=== PATIENT | male | born 1990 | race Caucasian/White ===

== ENCOUNTER 2018-03-02 17:22 | Emergency (ER) | payer OTHER ==
[2018-03-02 17:23] VITALS: BMI 23.3
[2018-03-02] MEDS ORDERED: Sodium Chloride 0.9% 1,000 ML IV ONE (18:42)
[2018-03-02] MEDS ORDERED: Sodium Chloride 0.9% 1,000 ML ONE (18:58)
[2018-03-02 19:04] VITALS: RESP 18
[2018-03-02 19:05] LABS: BASO # 0.1 K/uL (0.0-0.2); BASO % 0.6 % (0.0-2.0); EOS # 0.1 K/uL (0.0-0.7); EOS % 0.7 % (0.0-4.0); HEMOGLOBIN 15.3 g/dL (12.0-18.0); LYMPH % 10.7 % (20.0-40.0); MEAN CELL VOLUME 95.4 fL (80.0-94.0); MEAN CORPUSCULAR HEMOGLOBIN 34.1 pg (27.0-31.0); MEAN CORPUSCULAR HGB CONC 35.7 g/dL (33.0-37.0); MEAN PLATELET VOLUME 6.8 fL (7.2-11.7); MONO % 10.2 % (0.0-10.0); NEUT # 7.7 K/uL (1.8-7.0); NEUT % 77.8 % (50.0-75.0); RBC 4.5 Mil/uL (4.40-5.90); RED CELL DISTRIBUTION WIDTH 14.7 % (11.5-14.5); WHITE BLOOD COUNT 9.8 K/uL (4.8-10.8)
[2018-03-02 19:17] LABS: ALB/GLOB RATIO 1.3 (1.0-2.1); ALBUMIN 4.3 g/dL (3.5-5.0); ALT/SGPT 30 U/L (21-72); AST/SGOT 36 U/L (17-59); BLOOD UREA NITROGEN 10 mg/dL (9-20); CALCIUM 9.3 mg/dl (8.6-10.4); GFR AFRICAN-AMERICAN > 60; GFR NON-AFRICAN AMERICAN > 60; LIPASE 79 U/L (23-300)
[2018-03-02] MEDS ORDERED: Belladonna-Phenobarbital PO STA (19:36)
[2018-03-02] MEDS ORDERED: Aluminum Hydroxide/Magnesium Hydroxide Susp (30 mL) PO STA (19:36)
--- NOTE | 2018-03-02 19:37 | C.PDOC ---
History Of Present Illness 27yo male, otherwise healthy, presents to ED with complaints of fever, abdominal pain, nausea and vomiting since this morning. He denies any cough, chest pain, shortness of breath and offers no other medical complaints. Patient did not take any medications for his symptoms. PMD: None provided Time Seen by Provider: 03/02/18 18:12 Chief Complaint (Nursing): GI Problem History Per: Patient History/Exam Limitations: no limitations Onset/Duration Of Symptoms: Days Current Symptoms Are (Timing): Still Present Location Of Pain/Discomfort: Diffuse Associated Symptoms: Fever, Nausea, Vomiting Additional History Per: Patient Past Medical History Reviewed: Historical Data, Nursing Documentation, Vital Signs Vital Signs: Last Vital Signs Temp 98.5 F 03/02/18 21: Pulse 81 03/02/18: Resp 18 03/02/18 21: BP 125/79 03/02/18 21: Pulse Ox 99 03/03/18 21:22 - Medical History PMH: No Chronic Diseases Surgical History: No Surg Hx Family History: States: No Known Family Hx, Unknown Family Hx - Social History Hx Alcohol Use: Yes Hx Substance Use: No - Immunization History Hx Tetanus Toxoid Vaccination: No Hx Influenza Vaccination: No Hx Pneumococcal Vaccination: No Review Of Systems Except As Marked, All Systems Reviewed And Found Negative. Constitutional: Positive for: Fever, Chills. Negative for: Weakness, Malaise Eyes: Negative for: Pain, Vision Change, Conjunctivae Inflammation, Eyelid Inflammation, Redness ENT: Negative for: Ear Pain, Ear Discharge, Nose Pain, Nose Discharge, Nose Congestion, Mouth Pain, Mouth Swelling, Throat Pain Cardiovascular: Negative for: Chest Pain, Palpitations, Orthopnea, Paroxysmal Noc. Dyspnea Respiratory: Negative for: Cough, Shortness of Breath, Hemoptysis, SOB with Excertion, Pleuritic Pain, Sputum Gastrointestinal: Positive for: Nausea, Vomiting, Abdominal Pain. Negative for : Constipation, Melena, Hematochezia, Hematemesis Genitourinary: Negative for: Dysuria, Frequency, Incontinence Musculoskeletal: Negative for: Neck Pain, Shoulder Pain, Arm Pain Skin: Negative for: Rash Neurological: Negative for: Weakness, Numbness, Incoordination, Confusion Psych: Negative for: Anxiety, Depression Physical Exam - Physical Exam Appears: Non-toxic, No Acute Distress Skin: Normal Color, Warm, Dry Head: Atraumatic, Normacephalic Eye(s): bilateral: Normal Inspection, PERRL, EOMI Ear(s): Bilateral: Normal Nose: Normal Oral Mucosa: Moist Tongue: Normal Appearing Lips: Normal Appearing Teeth: Normal Dentition Gingiva: Normal Appearing Throat: Normal Neck: Normal ROM, Supple Chest: Symmetrical Cardiovascular: Rhythm Regular Respiratory: Normal Breath Sounds Gastrointestinal/Abdominal: Normal Exam, Soft, No Tenderness Extremity: Normal ROM, No Deformity Extremity: Bilateral: Atraumatic, No Pedal Edema, Normal Color And Temperature, Normal ROM Neurological/Psych: Oriented x3 ED Course And Treatment - Laboratory Results Result Diagrams: 03/02/18 19:02 03/02/18 19:02 O2 Sat by Pulse Oximetry: 99 (RA) Pulse Ox Interpretation: Normal Medical Decision Making Medical Decision Making: Impression: Plan: -- IV Fluids -- Labs -- CXR -- Pepcid 20mg PO -- 1tab PO -- Maalox 30ml PO -- Tylenol 975mg PO Time: 2052 Labs reviewed and unremarkable. Upon reassessment, patient reports marked improvement in pain. Disposition Counseled Patient/Family Regarding: Diagnosis - Disposition Referrals: [facility] [place] [facility] [Outside] [facility] [Outside] Disposition: HOME/ ROUTINE Disposition Time: 21:01 Condition: GOOD Additional Instructions: return if symptoms worsen or return Instructions: Acute Abdomen (Belly Pain), Acute Abdomen (Belly Pain), Adult (DC ), Nausea and Vomiting, Adult (DC) Forms: [facility] (Icelandic) - Clinical Impression Clinical Impression: Abdominal pain - Scribe Statement The provider has reviewed the documentation as recorded by the Scribe (Tiny Banda) Provider Attestation: All medical record entries made by the Scribe were at my direction and personally dictated by me. I have reviewed the chart and agree that the record accurately reflects my personal performance of the history, physical exam, medical decision making, and the department course for this patient. I have also personally directed, reviewed, and agree with the discharge instructions and disposition.
[2018-03-02] MEDS ORDERED: Belladonna-Phenobarbital ONE (20:03)
[2018-03-02] MEDS ORDERED: Aluminum Hydroxide/Magnesium Hydroxide Susp (30 mL) ONE (20:03)
[2018-03-02 21:03] LABS: URINE BACTERIA MOD (<OCC); URINE BILIRUBIN NEGATIVE (NEGATIVE); URINE BLOOD 1+ (NEGATIVE); URINE CLARITY Hazy (Clear); URINE GLUCOSE (UA) NORMAL (Normal); URINE LEUKOCYTE ESTERASE 1+ Leu/uL (Negative); URINE PROTEIN 1+ mg/dL (NEGATIVE); URINE UROBILINOGEN NORMAL mg/dL (0.2-1.0)
[2018-03-02 21:19] VITALS: BP 125/79; PULSE 81; TEMP 98.5; O2SAT 99
== END 2018-03-02 21:19 | disposition home or self-care (01) ==
LOC: C.ER 17:22
DX: R10.9 Unspecified abdominal pain (principal)
CPT/HCPCS: 71046; 80053; 81001; 83690; 85025; 96360; 99285; J7040

== ENCOUNTER 2018-03-04 05:20 | Emergency (ER) | payer OTHER ==
[2018-03-04 05:20] VITALS: BMI 23.3
[2018-03-04] MEDS ORDERED: Sodium Chloride 0.9% 1,000 ML IV ONE (05:48)
[2018-03-04] MEDS ORDERED: Piperacillin/Tazobact 3.375 gm 100 ML IVPB STA (05:49)
--- NOTE | 2018-03-04 05:50 | C.PDOC ---
History Of Present Illness 27 year old male presents to the emergency department with complaints of right- sided abdominal pain with nausea. Patient reports he was seen in the ED yesterday for the same complaints, and had blood work and a CXR done which resulted negative. Patient denies vomiting. Time Seen by Provider: 03/04/18 05:48 Chief Complaint (Nursing): Abdominal Pain History Per: Patient History/Exam Limitations: no limitations Onset/Duration Of Symptoms: Days (1) Current Symptoms Are (Timing): Still Present Context: Other Severity: Moderate Pain Scale Rating Of: 4 Location Of Pain/Discomfort: RLQ Radiation Of Pain To:: None Quality Of Discomfort: "Pain" Associated Symptoms: Nausea. denies: Vomiting, Urinary Symptoms Exacerbating Factors: None Alleviating Factors: None Last Bowel Movement: Yesterday Recent travel outside of the [place]: No Additional History Per: Patient Past Medical History Reviewed: Historical Data, Nursing Documentation, Vital Signs Vital Signs: Last Vital Signs Temp 101.9 F H 03/04/18 05:42 Pulse 115 H 03/04/18 05:31 Resp 18 03/04/18 05:31 BP 134/95 H 03/04/18 05:31 Pulse Ox 99 03/04/18 06:26 - Medical History PMH: No Chronic Diseases Surgical History: No Surg Hx Family History: States: No Known Family Hx - Social History Hx Alcohol Use: Yes Hx Substance Use: No - Immunization History Hx Tetanus Toxoid Vaccination: No Hx Influenza Vaccination: No Hx Pneumococcal Vaccination: No Review Of Systems Constitutional: Positive for: Fever. Negative for: Chills Cardiovascular: Negative for: Chest Pain Respiratory: Negative for: Shortness of Breath Gastrointestinal: Positive for: Nausea, Abdominal Pain. Negative for: Vomiting Genitourinary: Negative for: Incontinence Musculoskeletal: Negative for: Back Pain Skin: Negative for: Rash Neurological: Negative for: Weakness Psych: Negative for: Anxiety Physical Exam - Physical Exam Appears: Non-toxic, No Acute Distress Skin: Warm, Dry Head: Normacephalic Eye(s): bilateral: Normal Inspection Oral Mucosa: Moist Neck: Supple Cardiovascular: Rhythm Regular Respiratory: No Rales, No Rhonchi, No Wheezing Gastrointestinal/Abdominal: Bowel Sounds (tympanic to percussion), Soft, Tenderness (RLQ), No Distention, No Guarding, No Rebound Back: Normal Inspection Extremity: Normal ROM Extremity: Bilateral: Atraumatic, Normal Color And Temperature Pulses: Left Dorsalis Pedis: Normal, Right Dorsalis Pedis: Normal Neurological/Psych: Oriented x3, Normal Speech, Normal Cognition Gait: Steady ED Course And Treatment - Laboratory Results Result Diagrams: 03/04/18 06:26 18 06:26 O2 Sat by Pulse Oximetry: 99 (RA) Pulse Ox Interpretation: Normal Progress Note: Plan: Venous Blood Gas. CT Abdomen and Pelvis. CMP. Lipase. CBC. PTT. Prothrombin Time. Zosyn 100ml IVBP. NaCl IV Fluids. Toradol 30mg IVP. Blood Culture. Urinalysis Disposition Counseled Patient/Family Regarding: Studies Performed, Diagnosis - Disposition Disposition Time: 06:47 Condition: FAIR Forms: [facility] (Urdu) - Clinical Impression Clinical Impression: Abdominal pain, Fever - Scribe Statement The provider has reviewed the documentation as recorded by the Scribe (Julian Smiley) Provider Attestation: All medical record entries made by the Scribe were at my direction and personally dictated by me. I have reviewed the chart and agree that the record accurately reflects my personal performance of the history, physical exam, medical decision making, and the department course for this patient. I have also personally directed, reviewed, and agree with the discharge instructions and disposition. Physician Patient Turnover Patient Signed Over To: Angelica Whitman Handoff Comments: pending CT and dispostion
[2018-03-04] MEDS ORDERED: Piperacillin/Tazobact 3.375 gm 100 ML IVPB ONE (06:28)
[2018-03-04 06:30] LABS: BASO % 0.2 % (0.0-2.0); EOS % 0.1 % (0.0-4.0); HEMOGLOBIN 14.8 g/dL (12.0-18.0); LYMPH # 0.4 K/uL (1.0-4.3); LYMPH % 5.4 % (20.0-40.0); MEAN CELL VOLUME 95.5 fL (80.0-94.0); MEAN CORPUSCULAR HEMOGLOBIN 33.8 pg (27.0-31.0); MEAN CORPUSCULAR HGB CONC 35.4 g/dL (33.0-37.0); MEAN PLATELET VOLUME 8.1 fL (7.2-11.7); MONO # 0.5 K/uL (0.0-0.8); MONO % 7.1 % (0.0-10.0); NEUT # 6.5 K/uL (1.8-7.0); NEUT % 87.2 % (50.0-75.0); NRBC % 0.1 % (0.0-2.0); PLATELET COUNT 136 K/uL (130-400); RBC 4.39 Mil/uL (4.40-5.90); RED CELL DISTRIBUTION WIDTH 14.5 % (11.5-14.5); WHITE BLOOD COUNT 7.4 K/uL (4.8-10.8)
[2018-03-04 06:38] LABS: INR 1.1; PROTHROMBIN TIME 11.8 SECONDS (9.7-12.2); SQUAMOUS EPITHIAL 3 /hpf (0-5); URINE BACTERIA OCC (<OCC); URINE BILIRUBIN NEGATIVE (NEGATIVE); URINE BLOOD 1+ (NEGATIVE); URINE CLARITY Hazy (Clear); URINE COLOR Amber (YELLOW); URINE GLUCOSE (UA) NORMAL (Normal); URINE LEUKOCYTE ESTERASE 3+ Leu/uL (Negative); URINE PROTEIN 2+ mg/dL (NEGATIVE)
[2018-03-04 06:42] LABS: BLOOD UREA NITROGEN 8 mg/dL (9-20); GFR AFRICAN-AMERICAN > 60; GFR NON-AFRICAN AMERICAN > 60
[2018-03-04 06:43] LABS: ALB/GLOB RATIO 1.2 (1.0-2.1); ALBUMIN 4.3 g/dL (3.5-5.0); ALT/SGPT 20 U/L (21-72); AST/SGOT 33 U/L (17-59); CALCIUM 9.2 mg/dl (8.6-10.4); LIPASE 93 U/L (23-300)
[2018-03-04 06:45] LABS: VENOUS BLOOD GAS BASE EXCESS 2.4 mmol/L (0.0-2.0); VENOUS BLOOD GAS PCO2 38 mmHg (40-60); VENOUS BLOOD GAS PO2 25 mm/Hg (30-55); VENOUS BLOOD PH 7.45 (7.32-7.43)
[2018-03-04] MEDS ORDERED: Iodixanol 320 MG/ML 100 ML BOTTLE IV ONE (07:11)
[2018-03-04 08:13] LABS: LYMPHOCYTE 6 % (20-40); MONOCYTE 10 % (0-10); NEUTROPHIL 84 % (50-75); PLATELET ESTIMATE NORMAL (NORMAL); TOTAL CELLS COUNTED 100
--- NOTE | 2018-03-04 09:08 | CT ---
PROCEDURE: CT Abdomen and Pelvis with contrast HISTORY: Abdominal pain COMPARISON: None. TECHNIQUE: CT scan of the abdomen and pelvis was performed after administration of intravenous contrast. Oral contrast was not administered. Coronal and sagittal reformatted images were obtained. Contrast dose: 100 mL Visipaque Radiation dose: Total exam DLP = 445.32 mGy-cm. This CT exam was performed using one or more of the following dose reduction techniques: Automated exposure control, adjustment of the mA and/or kV according to patient size, and/or use of iterative reconstruction technique. FINDINGS: LOWER THORAX: There is a 6 mm noncalcified nodule in the right lower lobe. The lung bases are clear. LIVER: Normal in size with homogeneous enhancement. No gross lesion or ductal dilatation. GALLBLADDER AND BILE DUCTS: No calcified gallstones. PANCREAS: Normal in size with homogeneous enhancement. No gross lesion or ductal dilatation. SPLEEN: There is borderline splenomegaly. ADRENALS: No discrete nodule. KIDNEYS AND URETERS: Normal in size with homogeneous enhancement. No hydronephrosis. No solid mass. VASCULATURE: No aortic aneurysm. BOWEL: The small bowel loops are normal in caliber. The colon is unremarkable. No bowel dilatation or obstruction. APPENDIX: Normal appendix. PERITONEUM: No free fluid. No free air. LYMPH NODES: No enlarged lymph nodes. BLADDER: There is moderate circumferential mural thickening of the bladder wall. REPRODUCTIVE: Unremarkable. BONES: There are bilateral pars interarticularis defects at L5 with grade 1 anterior listhesis of L5 on S1. No acute fracture. OTHER FINDINGS: None. IMPRESSION: 1. Moderate circumferential mural thickening of the urinary bladder wall concerning for cystitis. Please correlate with urine analysis. 2. No acute abdominal or pelvic abnormality. 3. 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 6. 6 mm noncalcified nodule in the right lower lobe. A follow-up CT scan of the thorax in 6-12 months interval is recommended to assess stability of this nodule.
[2018-03-04 09:20] VITALS: BP 138/83; PULSE 70; RESP 18; TEMP 99; O2SAT 98
== END 2018-03-04 10:00 | disposition home or self-care (01) ==
LOC: C.ER 05:20
DX: R50.9 Fever, unspecified (principal); R10.31 Right lower quadrant pain
CPT/HCPCS: 74177; 80053; 81001; 82803; 83690; 85025; 85610; 85730; 87040; 87086; 96374; 96375; 99285; J1885; J2405; J2543; J7040; Q9967

== ENCOUNTER 2018-03-04 21:39 | Inpatient (IN) | payer OTHER ==
[2018-03-04 21:39] VITALS: BMI 23.3
[2018-03-04] MEDS ORDERED: Sodium Chloride 0.9% 1,000 ML IV ONE (22:24)
--- NOTE | 2018-03-04 22:48 | C.PDOC ---
History Of Present Illness 27 year old male presents to the ER after he was called back after he had blood cultures that were positive for gram negative rods. Patient was initially seen on 03/02/18 for fever, abdominal pain, nausea, and vomiting. Patient had lab work done that showed a normal white count and urine of 88 WBCs with nitrites. Patient continued with abdominal and fever, he returned earlier today and was found with 987 WBCs in his urine, he was given a dose of zosyn and discharged on cipro and doxycycline. He was called back this afternoon for Blood cultures that were positive for Gram- rods. Patient reports he still has abdominal discomfort and has had fever today but denies back pain. Time Seen by Provider: 03/04/18 22:17 Chief Complaint (Nursing): Fever History Per: Patient History/Exam Limitations: no limitations Onset/Duration Of Symptoms: Hrs Current Symptoms Are (Timing): Still Present Location Of Pain: Other (Abdominal pain) Sick Contacts (Context): None Associated Symptoms: Fever, Other (Abdominal discomfort) Recent travel outside of the [place]: No Past Medical History Reviewed: Historical Data, Nursing Documentation, Vital Signs Vital Signs: Last Vital Signs Temp 99.8 F H 03/04/18 21:57 Pulse 108 H 03/04/18 21:57 Resp 20 03/04/18 21:57 BP 116/90 03/04/18 21:57 Pulse Ox 100 03/04/18 23:39 Family History: States: Unknown Family Hx - Social History Hx Alcohol Use: Yes (EVERY WEEKEND) Hx Substance Use: No - Immunization History Hx Tetanus Toxoid Vaccination: No Hx Influenza Vaccination: No Hx Pneumococcal Vaccination: No Review Of Systems Constitutional: Positive for: Fever Cardiovascular: Negative for: Chest Pain, Palpitations Respiratory: Negative for: Cough, Shortness of Breath Gastrointestinal: Positive for: Abdominal Pain. Negative for: Vomiting Physical Exam - Physical Exam Appears: Non-toxic Skin: Normal Color, Warm, Dry Head: Atraumatic, Normacephalic Eye(s): bilateral: Normal Inspection Oral Mucosa: Moist Neck: Normal, Supple Chest: Symmetrical, No Tenderness Cardiovascular: Rhythm Regular Respiratory: Normal Breath Sounds, No Rales, No Rhonchi, No Wheezing Gastrointestinal/Abdominal: Soft, Tenderness (Mild suprapubic), No Guarding, No Rebound Back: No CVA Tenderness Neurological/Psych: Oriented x3, Normal Speech ED Course And Treatment - Laboratory Results Result Diagrams: 03/04/18 22:38 03/04/18 22:38 Lab Interpretation: Abnormal (WBC 6.7 with persistent left shift, UA WBC 428 with 3+ leukocyte esterase) O2 Sat by Pulse Oximetry: 100 (Room air) Pulse Ox Interpretation: Normal Progress Note: Blood work and urinalysis ordered. - Physician Consult Information Physician Contacted: Yayo Yusuf Outcome Of Conversation: Patient to be admitted for bacturia with pyelonephritis Disposition - Disposition Disposition: HOSPITALIZED Disposition Time: 00:00 Condition: STABLE - POA Present On Arrival: None - Clinical Impression Clinical Impression: Pyelonephritis, acute - Scribe Statement The provider has reviewed the documentation as recorded by the Scribfelisha Almeida All medical record entries made by the Brandyibfelisha were at my direction and personally dictated by me. I have reviewed the chart and agree that the record accurately reflects my personal performance of the history, physical exam, medical decision making, and the department course for this patient. I have also personally directed, reviewed, and agree with the discharge instructions and disposition.
[2018-03-04 22:57] LABS: URINE BACTERIA OCC (<OCC); URINE BILIRUBIN NEGATIVE (NEGATIVE); URINE BLOOD 2+ (NEGATIVE); URINE CLARITY Hazy (Clear); URINE COLOR Yellow (YELLOW); URINE GLUCOSE (UA) NORMAL (Normal); URINE LEUKOCYTE ESTERASE 3+ Leu/uL (Negative); URINE PROTEIN 1+ mg/dL (NEGATIVE)
[2018-03-04 23:19] LABS: ALB/GLOB RATIO 1.1 (1.0-2.1); ALBUMIN 4.1 g/dL (3.5-5.0); ALT/SGPT 21 U/L (21-72); AST/SGOT 37 U/L (17-59); BASO % 0.3 % (0.0-2.0); BLOOD UREA NITROGEN 5 mg/dL (9-20); CALCIUM 9.1 mg/dl (8.6-10.4); GFR AFRICAN-AMERICAN > 60; GFR NON-AFRICAN AMERICAN > 60; HEMOGLOBIN 14.9 g/dL (12.0-18.0); LIPASE 149 U/L (23-300); LYMPH # 0.5 K/uL (1.0-4.3); LYMPH % 7.5 % (20.0-40.0); MEAN CELL VOLUME 94.6 fL (80.0-94.0); MEAN CORPUSCULAR HEMOGLOBIN 34.1 pg (27.0-31.0); MONO # 0.7 K/uL (0.0-0.8); MONO % 10.1 % (0.0-10.0); NEUT # 5.5 K/uL (1.8-7.0); NEUT % 82.1 % (50.0-75.0); PLATELET COUNT 145 K/uL (130-400); RBC 4.38 Mil/uL (4.40-5.90); RED CELL DISTRIBUTION WIDTH 14.4 % (11.5-14.5); WHITE BLOOD COUNT 6.7 K/uL (4.8-10.8)
[2018-03-04] MEDS: Dextrose 5%/0.45% NS 1,000 ML IV SCH (23:20)
[2018-03-04 23:23] LABS: BANDS 1 % (0-2); LYMPHOCYTE 10 % (20-40); MONOCYTE 8 % (0-10); NEUTROPHIL 81 % (50-75); PLATELET ESTIMATE NORMAL (NORMAL); TOTAL CELLS COUNTED 100
[2018-03-05 01:26] VITALS: RESP 20
[2018-03-05] MEDS: Dextrose 5%/0.45% NS 1,000 ML IV SCH ×2 (01:28→08:27)
[2018-03-05] MEDS: Enoxaparin 40 mg Syringe SC SCH (10:26)
--- NOTE | 2018-03-05 10:53 | CP.PCM.PN ---
Subjective - Date & Time of Evaluation Date of Evaluation: 03/05/18 Time of Evaluation: 08:00 - Subjective Subjective: PGY2 medicine progress note for Dr. Yusuf: Patient was seen and examined at bedside th is morning. He reported abdominal pain radiating to the back b/l and burning with urination for the past 3 days. He states his urine is dark yellow and also reports some clear/yellow discharge. He had been seen in the ED twice then was called to return due to positive blood cultures. Patient states he has also had fever and chills over the last couple of days. He reports some mild nausea and vomiting clear fluid. He has no other complaints at this time. He is having regular bowel movement. PMHx - none Meds - denies Allergies - NKDA Surg - denies Fam hx - father had "jaundice" Social - from [place] works in [employer], single, denied tobacco or drug use. Admits to heaving alcohol drinking but only on the weekends PMD - none, will need one Objective - Vital Signs/Intake and Output Vital Signs (last 24 hours): Temp Pulse Resp BP Pulse Ox 98.3 F 64 20 135/77 100 03/05/18 07:15 03/05/18 07:15 03/05/18 07:15 03/05/18 07:15 03/05/18 07:15 Intake and Output: 03/05/18 03/05/18 06:59 18:59 Intake Total 300 Balance 300 - Medications Medications: Current Medications Acetaminophen (Tylenol 325mg Tab) 650 mg PO Q6 PRN PRN Reason: Temperature Enoxaparin Sodium (Lovenox) 40 mg SC DAILY [facility] Last Admin: 03/05/18 10:26 Dose: 40 mg Ceftriaxone Sodium 1 gm/ (Sodium Chloride) 100 mls @ 100 mls/hr IVPB DAILY [facility] PRN Reason: Protocol Last Admin: 03/05/18 10:26 Dose: 100 mls/hr Dextrose/Sodium Chloride (Dextrose 5%/0.45% Ns 1000 Ml) 1,000 mls @ 100 mls/hr IV .Q10H KENN Last Admin: 03/05/18 08:27 Dose: 100 mls/hr - Labs Labs: 03/04/18 22:38 03/04/18 22:38 - Constitutional Appears: Non-toxic, No Acute Distress - Head Exam Head Exam: ATRAUMATIC, NORMAL INSPECTION - Eye Exam Eye Exam: EOMI - ENT Exam ENT Exam: Mucous Membranes Moist - Respiratory Exam Respiratory Exam: Clear to Ausculation Bilateral, NORMAL BREATHING PATTERN. absent: Respiratory Distress - Cardiovascular Exam Cardiovascular Exam: REGULAR RHYTHM, +S1, +S2 - GI/Abdominal Exam GI & Abdominal Exam: Soft, Hypoactive Bowel Sounds. absent: Distended, Firm, Guarding, Tenderness - Extremities Exam Extremities Exam: Normal Inspection. absent: Calf Tenderness, Pedal Edema - Back Exam Back Exam: CVA tenderness (L), CVA tenderness (R), NORMAL INSPECTION. absent: paraspinal tenderness, rash noted - Neurological Exam Neurological Exam: Alert, Awake, CN II-XII Intact, Normal Gait, Oriented x3 Neuro motor strength exam: Left Upper Extremity: 5, Right Upper Extremity: 5, Left Lower Extremity: 5, Right Lower Extremity: 5 - Psychiatric Exam Psychiatric exam: Normal Affect, Normal Mood - Skin Skin Exam: Dry, Intact, Normal Color Assessment and Plan - Assessment and Plan (Free Text) Assessment: Urinary Tract infection with possible Pyelonephritis UA 2+ blood, 3+ LE, 5 RBC, 428 WBC f/u culture and sensitivity Ceftriaxone 1gram IVPA daily CT showed thickening of the wall of the bladder concerning for cysitits, kidneys appeared normal, incidental findings as indicated below f/u Am labs Tylenol prn fever/pain Bacteremia Likely secondary to UTI/pyelo Blood cultures done in the ER on 5.23 + Gram negative rods in one bottle - f/u sensitivity Dr. Grant, ID on board help appreciated Was febrile in Ed yesterday Tmax 100.0 Chest X ray negative 6mm RLL lung nodules Incidental finding on CT Patient will need follow up CT in 3-6 months, outpatient Spondylolysis L5/S1 Incidental finding on CT Outpatient management Tylenol prn pain Alcohol use Counselled will f/u Mg level Prophylactic Measures Lovenox 40mg SC daily GI not indicated NS at 100 cc/hour Liquid diet - advance as tolerated All management per Dr. Yusuf.
[2018-03-05] MEDS: Sodium Chloride 0.9% 1,000 ML IV SCH ×3 (11:15→22:02)
[2018-03-05 12:01] LABS: BASO % 0.2 % (0.0-2.0); EOS % 0.1 % (0.0-4.0); HEMOGLOBIN 14.8 g/dL (12.0-18.0); LYMPH # 0.4 K/uL (1.0-4.3); LYMPH % 8.5 % (20.0-40.0); MEAN CELL VOLUME 94.4 fL (80.0-94.0); MEAN CORPUSCULAR HEMOGLOBIN 33.6 pg (27.0-31.0); MEAN CORPUSCULAR HGB CONC 35.6 g/dL (33.0-37.0); MEAN PLATELET VOLUME 8.2 fL (7.2-11.7); MONO # 0.1 K/uL (0.0-0.8); MONO % 2.8 % (0.0-10.0); NEUT # 4.3 K/uL (1.8-7.0); NEUT % 88.4 % (50.0-75.0); NRBC % 0.2 % (0.0-2.0); RBC 4.41 Mil/uL (4.40-5.90); RED CELL DISTRIBUTION WIDTH 14.5 % (11.5-14.5); WHITE BLOOD COUNT 4.8 K/uL (4.8-10.8)
[2018-03-05 12:05] LABS: PLATELET COUNT 123 K/uL (130-400)
[2018-03-05 12:07] LABS: ALB/GLOB RATIO 1.1 (1.0-2.1); ALBUMIN 3.9 g/dL (3.5-5.0); ALT/SGPT 31 U/L (21-72); AST/SGOT 43 U/L (17-59); BLOOD UREA NITROGEN 4 mg/dL (9-20); CALCIUM 9.1 mg/dl (8.6-10.4); GFR AFRICAN-AMERICAN > 60; GFR NON-AFRICAN AMERICAN > 60
[2018-03-05 12:26] LABS: BANDS 1 % (0-2); LYMPHOCYTE 7 % (20-40); MONOCYTE 5 % (0-10); NEUTROPHIL 87 % (50-75); TOTAL CELLS COUNTED 100
[2018-03-05 12:27] LABS: PLATELET ESTIMATE NORMAL (NORMAL)
[2018-03-05] MEDS: Saccharomyces Boulardi 250 mg Cap PO SCH ×2 (12:30→17:08)
[2018-03-05] MEDS: Magnesium Sulfate 1 gm in D5W 1 GM/100 ML BAG IVPB SCH ×2 (14:51→15:33)
--- NOTE | 2018-03-05 19:22 | CP.PCM.CON ---
History of Present Illness - History of Present Illness History of Present Illness: 27 year old male presents to the ER after he was called back after he had blood cultures that were positive for gram negative rods. Patient was initially seen on 03/02/18 for fever, abdominal pain, nausea, and vomiting. Patient had lab work done that showed a normal white count and urine of 88 WBCs with nitrites. Patient continued with abdominal and fever, he returned earlier today and was found with 987 WBCs in his urine, he was given a dose of zosyn and discharged on cipro and doxycycline. He was called back this afternoon for Blood cultures that were positive for Gram- rods. Patient reports he still has abdominal discomfort and has had fever today but denies back pain. PMHx - none Meds - denies Allergies - NKDA Surg - denies Fam hx - father had "jaundice" Social - from [place] works in [employer], single, denied tobacco or drug use. Admits to heaving alcohol drinking but only on the weekends PMD - none, will need one Review of Systems - Review of Systems All systems: reviewed and no additional remarkable complaints except Past Patient History - Infectious Disease Hx of Infectious Diseases: None - Past Medical History & Family History Past Medical History?: Yes - Past Social History Smoking Status: Never Smoked - CARDIAC Hx Cardiac Disorders: No - PULMONARY Hx Respiratory Disorders: No - NEUROLOGICAL Hx Neurological Disorder: No - HEENT Hx HEENT Problems: No - RENAL Hx Chronic Kidney Disease: No - ENDOCRINE/METABOLIC Hx Endocrine Disorders: No - HEMATOLOGICAL/ONCOLOGICAL Hx Blood Disorders: No - INTEGUMENTARY Hx Dermatological Problems: No - MUSCULOSKELETAL/RHEUMATOLOGICAL Hx Musculoskeletal Disorders: No Hx Falls: No - GASTROINTESTINAL Hx Gastrointestinal Disorders: No - GENITOURINARY/GYNECOLOGICAL Hx Genitourinary Disorders: No - PSYCHIATRIC Hx Psychophysiologic Disorder: No Hx Substance Use: No - SURGICAL HISTORY Hx Surgeries: No - ANESTHESIA Hx Anesthesia: No Meds Allergies/Adverse Reactions: Allergies Allergy/AdvReac Type Severity Reaction Status Date / Time No Known Allergies Allergy Verified 03/04/18 22:02 - Medications Medications: Current Medications Acetaminophen (Tylenol 325mg Tab) 650 mg PO Q6 PRN PRN Reason: Temperature Last Admin: 03/05/18 11:22 Dose: 650 mg Enoxaparin Sodium (Lovenox) 40 mg SC DAILY [facility] Last Admin: 03/05/18 10:26 Dose: 40 mg Folic Acid (Folic Acid) 1 mg PO DAILY [facility] Ceftriaxone Sodium 1 gm/ (Sodium Chloride) 100 mls @ 100 mls/hr IVPB DAILY [facility] PRN Reason: Protocol Last Admin: 03/05/18 10:26 Dose: 100 mls/hr Sodium Chloride (Sodium Chloride 0.9%) 1,000 mls @ 100 mls/hr IV .Q10H [facility] Last Admin: 03/05/18 11:15 Dose: 100 mls/hr Multivitamins (Hexavitamin) 1 tab PO DAILY [facility] Saccharomyces Boulardii (Florastor) 250 mg PO BID [facility] Last Admin: 03/05/18 17:08 Dose: 250 mg Thiamine HCl (Vitamin B1 Tab) 100 mg PO DAILY [facility] Physical Exam - Constitutional Appears: No Acute Distress, Chronically Ill - Head Exam Head Exam: ATRAUMATIC - Eye Exam Eye Exam: absent: Scleral icterus - ENT Exam ENT Exam: Mucous Membranes Dry, Normal External Ear Exam - Neck Exam Neck exam: Negative for: Lymphadenopathy - Respiratory Exam Respiratory Exam: Decreased Breath Sounds, Clear to Auscultation Bilateral - Cardiovascular Exam Cardiovascular Exam: REGULAR RHYTHM, +S1, +S2 - GI/Abdominal Exam GI & Abdominal Exam: Diminished Bowel Sounds, Soft. absent: Tenderness - Rectal Exam Rectal Exam: Deferred - Exam Exam: NORMAL INSPECTION - Extremities Exam Extremities exam: Negative for: pedal edema - Back Exam Back exam: absent: CVA tenderness (L), CVA tenderness (R) - Neurological Exam Neurological exam: Alert, CN II-XII Intact, Oriented x3, Reflexes Normal - Psychiatric Exam Psychiatric exam: Normal Mood - Skin Skin Exam: Dry, Intact Results - Vital Signs Recent Vital Signs: Last Vital Signs Temp 98.7 F 03/05/18 15:53 Pulse 101 H 03/05/18 15:53 Resp 20 03/05/18 15:53 BP 98/6 L 03/05/18 15:53 Pulse Ox 98 03/05/18 15:53 - Labs Result Diagrams: 03/05/18 11:45 03/05/18 11:45 Labs: Laboratory Results - last 24 hr 03/04/18 03/04/18 03/04/18 22:38 22:38 22:40 WBC 6.7 RBC 4.38 L Hgb 14.9 Hct 41.4 MCV 94.6 H MCH 34.1 H MCHC 36.0 RDW 14.4 Plt Count 145 MPV 8.0 Neut % (Auto) 82.1 H Lymph % (Auto) 7.5 L [place] % (Auto) 10.1 H Eos % (Auto) 0.0 Baso % (Auto) 0.3 Neut # (Auto) 5.5 Lymph # (Auto) 0.5 L [place] # (Auto) 0.7 Eos # (Auto) 0.0 Baso # (Auto) 0.0 Neutrophils % (Manual) 81 H Band Neutrophils % 1 Lymphocytes % (Manual) 10 L Monocytes % (Manual) 8 Platelet Estimate Normal RBC Morphology Normal Sodium 131 L Potassium 4.0 Chloride 95 L Carbon Dioxide 26 Anion Gap 13 BUN 5 L Creatinine 1.1 Est GFR ( Amer) > 60 Est GFR (Non-Af Amer) > 60 Random Glucose 143 H Calcium 9.1 Phosphorus Magnesium Total Bilirubin 3.4 H AST 37 ALT 21 Alkaline Phosphatase 88 Total Protein 7.6 Albumin 4.1 Globulin 3.6 Albumin/Globulin Ratio 1.1 Lipase 149 Urine Color Yellow Urine Clarity Hazy Urine pH 7.0 Ur Specific [place] 1.011 Urine Protein 1+ H Urine Glucose (UA) Normal Urine Ketones Negative Urine Blood 2+ H Urine Nitrate Negative Urine Bilirubin Negative Urine Urobilinogen 2.0 Ur Leukocyte Esterase 3+ H Urine WBC (Auto) 428 H Urine RBC (Auto) 5 H Urine Bacteria Occ H 18 03/05/18 11:45 11:45 WBC 4.8 RBC 4.41 Hgb 14.8 Hct 41.6 MCV 94.4 H MCH 33.6 H MCHC 35.6 RDW 14.5 Plt Count 123 L D MPV 8.2 Neut % (Auto) 88.4 H Lymph % (Auto) 8.5 L [place] % (Auto) 2.8 Eos % (Auto) 0.1 Baso % (Auto) 0.2 Neut # (Auto) 4.3 Lymph # (Auto) 0.4 L [place] # (Auto) 0.1 Eos # (Auto) 0.0 Baso # (Auto) 0.0 Neutrophils % (Manual) 87 H Band Neutrophils % 1 Lymphocytes % (Manual) 7 L Monocytes % (Manual) 5 Platelet Estimate Normal RBC Morphology Normal Sodium 139 Potassium 4.4 Chloride 103 Carbon Dioxide 27 Anion Gap 13 BUN 4 L Creatinine 1.0 Est GFR ( Amer) > 60 Est GFR (Non-Af Amer) > 60 Random Glucose 126 H Calcium 9.1 Phosphorus 1.2 L Magnesium 1.4 L Total Bilirubin 2.3 H AST 43 ALT 31 Alkaline Phosphatase 95 Total Protein 7.5 Albumin 3.9 Globulin 3.6 Albumin/Globulin Ratio 1.1 Lipase Urine Color Urine Clarity Urine pH Ur Specific [place] Urine Protein Urine Glucose (UA) Urine Ketones Urine Blood Urine Nitrate Urine Bilirubin Urine Urobilinogen Ur Leukocyte Esterase Urine WBC (Auto) Urine RBC (Auto) Urine Bacteria Assessment & Plan (1) Pyelonephritis, acute Status: Acute (2) Abdominal pain Status: Acute (3) Fever Status: Acute - Assessment and Plan (Free Text) Assessment: gram neg sepsis/ UTI in a 27 yo male with remote hx of hematuria as a child r/o urethral stricture or occult malignancy recc eval cont IV antibiotics for now
[2018-03-05 23:17] LABS: INTRACELLULAR PARASITE NEGATIVE (NEGATIVE)
[2018-03-06 07:48] LABS: ALB/GLOB RATIO 1.1 (1.0-2.1); ALBUMIN 3.5 g/dL (3.5-5.0); ALT/SGPT 31 U/L (21-72); AST/SGOT 37 U/L (17-59); BILIRUBIN,DIRECT 0.7 mg/dL (0.0-0.4); BLOOD UREA NITROGEN 4 mg/dL (9-20); CALCIUM 8.6 mg/dl (8.6-10.4); GFR AFRICAN-AMERICAN > 60; GFR NON-AFRICAN AMERICAN > 60
[2018-03-06 07:54] LABS: BASO % 0.3 % (0.0-2.0); EOS % 0.1 % (0.0-4.0); HEMOGLOBIN 13.9 g/dL (12.0-18.0); LYMPH # 0.7 K/uL (1.0-4.3); LYMPH % 9.6 % (20.0-40.0); MEAN CELL VOLUME 94.9 fL (80.0-94.0); MEAN CORPUSCULAR HEMOGLOBIN 33.8 pg (27.0-31.0); MEAN CORPUSCULAR HGB CONC 35.7 g/dL (33.0-37.0); MONO # 0.5 K/uL (0.0-0.8); MONO % 7.7 % (0.0-10.0); NEUT # 5.6 K/uL (1.8-7.0); NEUT % 82.3 % (50.0-75.0); NRBC % 0.2 % (0.0-2.0); RBC 4.09 Mil/uL (4.40-5.90); RED CELL DISTRIBUTION WIDTH 14.5 % (11.5-14.5); WHITE BLOOD COUNT 6.8 K/uL (4.8-10.8)
[2018-03-06 07:55] LABS: PLATELET COUNT 124 K/uL (130-400)
[2018-03-06] MEDS: Sodium Chloride 0.9% 1,000 ML IV SCH ×2 (08:00→16:00)
[2018-03-06 08:33] LABS: HEPATITIS B SURFACE AG Negative (NEGATIVE)
[2018-03-06 08:39] LABS: HEPATITIS A IGM NEGATIVE (NEGATIVE); HEPATITIS B CORE AB NEGATIVE (NEGATIVE)
[2018-03-06 08:50] LABS: HEPATITIS C ANTIBODY NEGATIVE (NEGATIVE)
--- NOTE | 2018-03-06 08:59 | CP.PCM.PN ---
Subjective - Date & Time of Evaluation Date of Evaluation: 03/06/18 Time of Evaluation: 08:58 - Subjective Subjective: Progress Note for Dr. Yusuf Patient seen and examined at bedside. Patient had a fever of 101.8 this morning. Patient had no complaints. He resting in bed comfortably. He further denies having headache, shortness of breath, chest pain, diarrhea, nausea, or vomiting. Objective - Vital Signs/Intake and Output Vital Signs (last 24 hours): Temp Pulse Resp BP Pulse Ox 101.9 F H 89 20 144/89 100 03/06/18 08:04 03/06/18 07:10 03/06/18 07:10 03/06/18 07:10 03/06/18 07:10 - Medications Medications: Current Medications Acetaminophen (Tylenol 325mg Tab) 650 mg PO Q6 PRN PRN Reason: Temperature Last Admin: 03/06/18 08:04 Dose: 650 mg Enoxaparin Sodium (Lovenox) 40 mg SC DAILY [facility] Last Admin: 03/05/18 10:26 Dose: 40 mg Folic Acid (Folic Acid) 1 mg PO DAILY [facility] Ceftriaxone Sodium 1 gm/ (Sodium Chloride) 100 mls @ 100 mls/hr IVPB DAILY [facility] PRN Reason: Protocol Last Admin: 03/05/18 10:26 Dose: 100 mls/hr Sodium Chloride (Sodium Chloride 0.9%) 1,000 mls @ 100 mls/hr IV .Q10H [facility] Last Admin: 03/06/18 08:00 Dose: 100 mls/hr Multivitamins (Hexavitamin) 1 tab PO DAILY [facility] Saccharomyces Boulardii (Florastor) 250 mg PO BID [facility] Last Admin: 03/05/18 17:08 Dose: 250 mg Thiamine HCl (Vitamin B1 Tab) 100 mg PO DAILY [facility] - Labs Labs: 03/06/18 07:08 03/06/18 07:08 - Additional Findings Additional findings: - Constitutional Appears: Non-toxic, No Acute Distress - Head Exam Head Exam: ATRAUMATIC, NORMAL INSPECTION - Eye Exam Eye Exam: EOMI - ENT Exam ENT Exam: Mucous Membranes Moist - Respiratory Exam Respiratory Exam: Clear to Ausculation Bilateral, NORMAL BREATHING PATTERN. absent: Respiratory Distress - Cardiovascular Exam Cardiovascular Exam: REGULAR RHYTHM, +S1, +S2 - GI/Abdominal Exam GI & Abdominal Exam: Soft, Hypoactive Bowel Sounds. absent: Distended, Firm, Guarding, Tenderness - Extremities Exam Extremities Exam: Normal Inspection. absent: Calf Tenderness, Pedal Edema - Back Exam Back Exam: CVA tenderness (L), CVA tenderness (R), NORMAL INSPECTION. absent: paraspinal tenderness, rash noted - Neurological Exam Neurological Exam: Alert, Awake, CN II-XII Intact, Normal Gait, Oriented x3 Neuro motor strength exam: Left Upper Extremity: 5, Right Upper Extremity: 5, Left Lower Extremity: 5, Right Lower Extremity: 5 - Psychiatric Exam Psychiatric exam: Normal Affect, Normal Mood - Skin Skin Exam: Dry, Intact, Normal Color Assessment and Plan - Assessment and Plan (Free Text) Assessment: Urinary Tract infection with possible Pyelonephritis UA 2+ blood, 3+ LE, 5 RBC, 428 WBC Urine culture shows preliminary Gram Negative [place] Ceftriaxone 1gram IVPA daily CT showed thickening of the wall of the bladder concerning for cysitits, kidneys appeared normal, incidental findings as indicated below Tylenol prn fever/pain Negative HIV, Hep panel Pending G/C WBC 6.8, Band 24 Procal 4.26 Meropenem 1gm Q8 (start 03/06) Follow testicular u/s and post void residual Bacteremia Likely secondary to UTI/pyelo Blood cultures done in the ER on 5.23 + Gram negative rods in one bottle - f/u sensitivity Dr. 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 Yusuf.
[2018-03-06] MEDS: Multiple Vitamins Tab PO SCH (09:25)
[2018-03-06] MEDS: Saccharomyces Boulardi 250 mg Cap PO SCH ×2 (09:25→18:10)
[2018-03-06] MEDS: Enoxaparin 40 mg Syringe SC SCH (09:25)
--- NOTE | 2018-03-06 09:44 | HP ---
HISTORY OF PRESENT ILLNESS: The patient is a 27-year-old male comes to the hospital with nausea, vomiting, fever, weakness, and burning sensation. The patient came to the hospital for admission. The patient is placed on bedrest, IV antibiotics. PHYSICAL EXAMINATION: GENERAL: The patient is awake, alert, and oriented. VITAL SIGNS: Temperature 98, pulse 90. HEENT: Within normal limits. NECK: Supple. CHEST: Symmetrical. HEART: Regular. ABDOMEN: Soft. EXTREMITIES: No edema. IMPRESSION: The patient admitted to the hospital for urinary tract infection. The patient on bedrest and IV antibiotic. Yayo Yusuf MD
[2018-03-06 10:47] LABS: BANDS 24 % (0-2); LYMPHOCYTE 10 % (20-40); MONOCYTE 5 % (0-10); NEUTROPHIL 60 % (50-75); PLATELET ESTIMATE SLIGHTLY DECREASED (NORMAL); REACTIVE LYMPHOCYTES 1 % (0-0); TOTAL CELLS COUNTED 100
--- NOTE | 2018-03-06 14:49 | US ---
HISTORY: UTI, bandemia TECHNIQUE: Realtime sonography through the scrotum with color and doppler flow. COMPARISON: None Available. FINDINGS: RIGHT TESTICLE: Measures 4.6 x 1.7 x 2.9 cm. Normal echotexture and flow. RIGHT EPIDIDYMIS: Epididymal head measures 1.3 x 1.2 x 1.3 cm. Grossly unremarkable appearance with normal flow. A tiny right epididymal cysts identified measuring 5 mm greatest dimension. LEFT TESTICLE: Measures 4.6 x 1.6 x 2.4 cm. Normal echotexture and flow. LEFT EPIDIDYMIS: Epididymal head measures 1.1 x 0.9 x 0.0 cm. Grossly unremarkable appearance with normal flow. HYDROCELE: None. VARICOCELE: None. OTHER FINDINGS: None. IMPRESSION: No cyst or solid testicular mass identified. No hydrocele or varicocele evident. No evidence of testicular torsion. 5 mm right epididymal cyst noted with the left epididymis unremarkable.
[2018-03-06] MEDS: Meropenem 1 GM in Sodium Chloride 0.9% 100 ML IVPB SCH ×2 (14:56→21:33)
--- NOTE | 2018-03-06 16:51 | CP.PCM.PN ---
Objective - Vital Signs/Intake and Output Vital Signs (last 24 hours): Temp Pulse Resp BP Pulse Ox 101.5 F H 76 20 155/93 H 96 03/06/18 16:45 03/06/18 16:45 03/06/18 16:45 03/06/18 16:45 03/06/18 16:45 Intake and Output: 03/06/18 03/06/18 06:59 18:59 Intake Total 450 Output Total 200 Balance 250 - Medications Medications: Current Medications Acetaminophen (Tylenol 325mg Tab) 650 mg PO Q6 PRN PRN Reason: Temperature Last Admin: 03/06/18 08:04 Dose: 650 mg Enoxaparin Sodium (Lovenox) 40 mg SC DAILY [facility] Last Admin: 03/06/18 09:25 Dose: 40 mg Folic Acid (Folic Acid) 1 mg PO DAILY [facility] Last Admin: 03/06/18 09:24 Dose: 1 mg Sodium Chloride (Sodium Chloride 0.9%) 1,000 mls @ 100 mls/hr IV .Q10H [facility] Last Admin: 03/06/18 08:00 Dose: 100 mls/hr Meropenem 1 gm/ Sodium (Chloride) 100 mls @ 100 mls/hr IVPB Q8 [facility] PRN Reason: Protocol Last Admin: 03/06/18 14:56 Dose: 100 mls/hr Multivitamins (Hexavitamin) 1 tab PO DAILY [facility] Last Admin: 03/06/18 09:25 Dose: 1 tab Saccharomyces Boulardii (Florastor) 250 mg PO BID [facility] Last Admin: 03/06/18 09:25 Dose: 250 mg Thiamine HCl (Vitamin B1 Tab) 100 mg PO DAILY [facility] Last Admin: 03/06/18 09:24 Dose: 100 mg - Labs Labs: 03/06/18 07:08 03/06/18 07:08 Assessment and Plan (1) Pyelonephritis, acute Status: Acute (2) Abdominal pain Status: Acute (3) Fever Status: Acute
[2018-03-07 01:34] VITALS: O2SAT 98
[2018-03-07] MEDS: Sodium Chloride 0.9% 1,000 ML IV SCH ×3 (03:00→14:54)
[2018-03-07] MEDS: Meropenem 1 GM in Sodium Chloride 0.9% 100 ML IVPB SCH ×2 (05:22→14:54)
[2018-03-07 07:47] LABS: BASO % 0.3 % (0.0-2.0); EOS % 0.4 % (0.0-4.0); HEMOGLOBIN 13.2 g/dL (12.0-18.0); LYMPH # 1.2 K/uL (1.0-4.3); LYMPH % 17.9 % (20.0-40.0); MEAN CELL VOLUME 95.5 fL (80.0-94.0); MEAN CORPUSCULAR HEMOGLOBIN 34.4 pg (27.0-31.0); MEAN CORPUSCULAR HGB CONC 36.1 g/dL (33.0-37.0); MEAN PLATELET VOLUME 8.3 fL (7.2-11.7); MONO % 15.7 % (0.0-10.0); NEUT # 4.2 K/uL (1.8-7.0); NEUT % 65.7 % (50.0-75.0); RBC 3.82 Mil/uL (4.40-5.90); RED CELL DISTRIBUTION WIDTH 14.6 % (11.5-14.5); WHITE BLOOD COUNT 6.4 K/uL (4.8-10.8)
[2018-03-07 07:53] LABS: ALB/GLOB RATIO 1.1 (1.0-2.1); ALBUMIN 3.6 g/dL (3.5-5.0); ALT/SGPT 18 U/L (21-72); AST/SGOT 35 U/L (17-59); BLOOD UREA NITROGEN 3 mg/dL (9-20); CALCIUM 8.5 mg/dl (8.6-10.4); GFR AFRICAN-AMERICAN > 60; GFR NON-AFRICAN AMERICAN > 60
[2018-03-07 09:10] VITALS: BP 129/82; PULSE 74; TEMP 99.4
[2018-03-07] MEDS: Multiple Vitamins Tab PO SCH (11:10)
[2018-03-07] MEDS: Saccharomyces Boulardi 250 mg Cap PO SCH (11:11)
[2018-03-07] MEDS: Enoxaparin 40 mg Syringe SC SCH (12:59)
--- NOTE | 2018-03-07 16:53 | CP.PCM.PN ---
Subjective - Date & Time of Evaluation Date of Evaluation: 03/07/18 Time of Evaluation: 11:00 - Subjective Subjective: Alert and oriented x3, denies pain or distress, voiding well. Objective - Vital Signs/Intake and Output Vital Signs (last 24 hours): Temp Pulse Resp BP Pulse Ox 99.4 F 74 20 129/82 98 03/07/18 08:00 03/07/18 08:00 03/07/18 08:00 03/07/18 08:00 03/07/18 08:00 Intake and Output: 03/07/18 03/07/18 06:59 18:59 Intake Total 1250 1000 Balance 1250 1000 - Labs Labs: 03/07/18 07:12 03/07/18 07:12 Assessment and Plan - Assessment and Plan (Free Text) Assessment: Patient is seen and examined with DR Yusuf, alert and orientedx3, denies abdominal pain or distress. Afebrile today, discharge plan for today as per DR Yusuf on cipro po x7 days. Advised to follow up in the office in 1 week.
--- NOTE | 2018-03-10 08:03 | DS ---
The patient is a 27-year-old male who comes to the hospital with chief complaint of burning sensation, fever, night sweats. The patient was found to have UTI. IV antibiotics, gradual improvement, switched to p.o., discharged, to follow up as an outpatient. Yayo Yusuf MD
== END 2018-03-07 16:30 | disposition home or self-care (01) | DRG 690 ==
LOC: C.ER 21:39 → C.9E 22:27 → C.5S 03-05 00:01 → C.3T 03-06 12:11
PROVIDERS: ADMIT Internal Medicine Pulmonary Disease; ATTEND Internal Medicine Pulmonary Disease
DX: N10 Acute pyelonephritis (principal); R78.81 Bacteremia; M47.9 Spondylosis, unspecified; R91.8 Other nonspecific abnormal finding of lung field; M43.00 Spondylolysis, site unspecified